=== PATIENT | male | born 1990 | race Caucasian/White ===

== ENCOUNTER 2017-12-19 15:35 | Emergency (ER) | payer MEDICAID ==
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
[2017-12-19 16:11] LABS: PLATELET COUNT 287 10^3/uL (150-400)
[2017-12-20] MEDS ORDERED: IBUPROFEN 600 MG TAB PO ONE (05:11)
--- NOTE | 2017-12-20 22:38 | CPEKG ---
Heart Rate: 52 RR Interval: 1154 P-R Interval: 111 QRSD Interval: 102 QT Interval: 424 QTC Interval: 395 P [place]: 58 QRS [place]: 81 T Wave [place]: 69 EKG Severity - NORMAL ECG - EKG Impression: SINUS RHYTHM EKG Impression: ST ELEV, PROBABLE NORMAL EARLY REPOL PATTERN Electronically Signed By: Edvin Teran 21-Dec-2017 07:16:24
[2017-12-20] MEDS ORDERED: MAG HYDROX/AL HYDROX/SIMETH 30 ML UDCUP PO ONE (22:40)
[2017-12-21] MEDS ORDERED: LORazepam 1 MG TAB PO ONE ×2 (10:44→22:07)
[2017-12-22 12:41] VITALS: BP 118/87
== END 2017-12-22 12:40 | disposition home or self-care (01) ==
LOC: EEVIPCON 15:35
DX: F25.9 Schizoaffective disorder, unspecified (principal); F31.9 Bipolar disorder, unspecified
CPT/HCPCS: 80305; G0480